=== PATIENT | female | born 1960 | race Caucasian/White ===

== ENCOUNTER 2020-08-29 06:02 | Emergency (ER) | payer OTHER ==
[~2020-08-29 06:02] MED LIST: FLEXERIL10 MG PO
[2020-08-29 06:41] LABS: BILIRUBIN 1+ mg/dL (NEGATIVE); BLOOD 1+ Ery/uL (NEGATIVE); GLUCOSE (U) TRACE mg/dL (NORMAL); LEUKOCYTES TRACE Leu/uL (NEGATIVE); NITRITE POSITIVE (NEGATIVE); PROTEIN 2+ mg/dL (NEGATIVE); SPECIFIC GRAVITY >=1.030 (1.001-1.030)
[2020-08-29 06:43] LABS: CLARITY HAZY (CLEAR); COLOR ORANGE (YELLOW)
[2020-08-29 06:47] LABS: BACTERIA 1+; URINARY WBC 20-50
[2020-08-29] MEDS ORDERED: PYRIDIUM200 MG PO (06:54)
[2020-08-29] MEDS ORDERED: BACTRIM DS TAB1 EACH PO (06:54)
== END 2020-08-29 07:20 | disposition home or self-care (01) ==
LOC: FER 06:02
PROVIDERS: Emergency Medicine
DX: N30.00 Acute cystitis without hematuria (principal); I10 Essential (primary) hypertension; J45.909 Unspecified asthma, uncomplicated; Z88.0 Allergy status to penicillin
CPT/HCPCS: 81001; 87076; 87088; 87186; 99283